=== PATIENT | male | born 1960 | race Caucasian/White ===

== ENCOUNTER 2018-08-25 12:16 | Emergency (ER) | payer MEDICAID ==
[~2018-08-25] VITALS: Ht 185.4 cm; Wt 77.1 kg
[2018-08-25] MEDS ORDERED: UNOBMED (12:27)
[2018-08-25 12:30] VITALS: BP 150/99
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
[2018-08-25] MEDS ORDERED: Acetaminophen 500mg (ES) tab ORAL ONE (12:59)
[2018-08-25] MEDS ORDERED: Acetaminophen 500mg (ES) tab PO ONE (13:00)
[2018-08-25] MEDS ORDERED: TYLENOL EXTRA500 MG ORAL (14:08)
--- NOTE | 2018-08-25 15:00 | NUR ---
pt with ledy wrap to right knee by applied research directoramanuel amador. pt toelrates well. dc aci and script given to pt by arpita hernandez rn. xray copies given to pt. amb steady out of ed with family a/ox3
[2018-08-25 15:05] VITALS: BP 148/76
--- NOTE | 2018-08-25 15:33 | Diagnostic Imaging Report ---
Indication: Pain Knee pain/trauma 3 views of the right knee were obtained. Findings: No acute fracture, malalignment, or joint effusion are identified. Joint space is relatively well-maintained. Impression: Negative for acute findings.
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
== END 2018-08-25 15:00 | disposition home or self-care (01) ==
LOC: EMR 13:20
DX: I83.813 Varicose veins of bilateral lower extremities with pain (principal)
CPT/HCPCS: 99283